=== PATIENT | male | born 1935 | race Caucasian/White ===

== ENCOUNTER → 2019-11-06 | Outpatient (CLI) | payer MEDICARE | END | disposition home or self-care (01) | LOC: RAH 11:00 | PROVIDERS: ATTEND Family Medicine | DX: C49.9 Malignant neoplasm of connective and soft tissue, unspecified (principal); Z96.641 Presence of right artificial hip joint; Z96.698 Presence of other orthopedic joint implants; Z89.611 Acquired absence of right leg above knee | CPT/HCPCS: 73718 ==

== ENCOUNTER → 2019-12-29 | Outpatient (CLI) | payer MEDICARE | END | disposition home or self-care (01) | LOC: RAH 10:42 | PROVIDERS: ATTEND Family Medicine | DX: S22.31XA Fracture of one rib, right side, initial encounter for closed fracture (principal); J90 Pleural effusion, not elsewhere classified; J18.1 Lobar pneumonia, unspecified organism; I70.0 Atherosclerosis of aorta; I25.10 Atherosclerotic heart disease of native coronary artery without angina pectoris; N26.1 Atrophy of kidney (terminal); M47.819 Spondylosis without myelopathy or radiculopathy, site unspecified; X58.XXXA Exposure to other specified factors, initial encounter; Y92.89 Other specified places as the place of occurrence of the external cause; Y93.89 Activity, other specified; Y99.8 Other external cause status | CPT/HCPCS: 71250 ==

== ENCOUNTER 2020-01-07 03:50 | Inpatient (IN) | payer MEDICARE ==
[~2020-01-07] VITALS: Ht 172.7 cm; Wt 69.3 kg
[2020-01-07 04:22] LABS: BASOPHILS % (AUTO) 0.3 % (0.0-5.0); EOSINOPHILS % (AUTO) 3.2 % (0.0-8.0); HEMATOCRIT 36.1 % (42-54); LYMPHOCYTES % (AUTO) 9.8 % (21.0-51.0); MEAN CORPUSCULAR HGB CONC 33.5 g/dL (32.0-36.0); MEAN CORPUSCULAR VOLUME 95.5 fL (79-99); MONOCYTES % (AUTO) 9.6 % (3.0-13.0); NEUTROPHILS % (AUTO) 76.8 % (40.0-77.0); PLATELET COUNT (AUTO) 193 K/uL (130-400); RED BLOOD CELL COUNT(AUTO) 3.78 MIL/uL (4.50-6.20); RED CELL DISTRIBUTION WIDTH 13.6 % (11.0-15.5); WHITE BLOOD COUNT (AUTO) 7.3 K/uL (4.8-10.8)
[2020-01-07 04:27] LABS: CREATININE 2.4 mg/dL (0.5-1.5); POTASSIUM 3.7 mmol/L (3.5-5.1)
[2020-01-07 04:33] LABS: ALBUMIN 3.1 g/dL (3.5-5.0); BILIRUBIN,TOTAL 0.3 mg/dL (0.2-1.0); TOTAL PROTEIN, SERUM 6.6 g/dL (6.0-8.3)
[2020-01-07 04:46] LABS: B-TYPE NATRIURETIC PEPTIDE 59 pg/mL (0-100)
[2020-01-07] MEDS ORDERED: METHYLPREDNISOLONE SOD SUCC 40MG/ML 1ML ONE (04:51)
[2020-01-07] MEDS ORDERED: FENTANYL CITRATE PF 50 MCG/1 ML 2ML VIAL ONE ×2 (04:52→05:56)
[2020-01-07] MEDS ORDERED: IPRATROPIUM/ALBUTEROL SULFATE 3 ML SOLUTION IH ONE ×2 (04:59→06:10)
[2020-01-07] MEDS ORDERED: LACTULOSE 20 GM/30 ML UDCUP PO PRN (06:30)
[2020-01-07] MEDS ORDERED: MORPHINE SULFATE 2 MG/ML 1ML SYG IV PRN (06:30)
[2020-01-07] MEDS ORDERED: ACETAMINOPHEN 325 MG TAB PO PRN ×2 (06:30)
[2020-01-07] MEDS ORDERED: ONDANSETRON HCL 4 MG/2 ML VIAL IV PRN (06:30)
[2020-01-07 07:00] LABS: INR 0.98 (0.85-1.15); PROTHROMBIN TIME 10.6 SEC (9.6-11.6)
[2020-01-07 08:00] VITALS: BP 118/76
--- NOTE | 2020-01-07 08:20 | NUR ---
ASSESSMENT / ARRIVAL TO FLOOR PT IS AAOX3 DENIES CP DENIES SOB DENIES NV NO COMPLAINTS AT THIS TIME. ARRIVED WITH ORDERS, CALL LIGHT WITHIN REACH/
[2020-01-07] MEDS ORDERED: MULT-1367 PO (08:30)
[2020-01-07] MEDS ORDERED: ASPI-1005 PO (08:30)
[2020-01-07] MEDS ORDERED: DOXA8TAB81 PO (08:30)
[2020-01-07] MEDS ORDERED: ACET-66 PO (08:30)
[2020-01-07] MEDS: LIDOCAINE 5% TOPICAL PATCH TP SCH (09:06)
[2020-01-07] MEDS: FAMOTIDINE 20MG TAB 20 MG TAB PO SCH ×2 (09:06→20:17)
--- NOTE | 2020-01-07 10:40 | NUR ---
DR MCNULTY ROUNDED SAW PATIENT ORDERS RECEIVED
[2020-01-07] MEDS: IPRATROPIUM/ALBUTEROL SULFATE 3 ML SOLUTION IH SCH ×3 (10:56→23:46)
[2020-01-07 12:00] VITALS: BP 125/76
--- NOTE | 2020-01-07 15:58 | NUR ---
[id number] Patient signed IM Letter, I faxed IM Letter to [phone] and placed in chart under consent tab.
[2020-01-07 16:00] VITALS: BP 110/63
[2020-01-07] MEDS ORDERED: HEPARIN 25000 UNITS/250 ML D5W 250 ML IV SCH (17:00)
--- NOTE | 2020-01-07 19:16 | NUR ---
INITIAL ASSESSMENT AND DISCHARGE PLAN CALL RECD FROM MAYLIN DAUGHTER- STATES PT AND SPOUSE LIVE HERE IN [facility] [employer] [place] EACH YEARS- RECENT NEW DX OF LUNG MASS ---HX OF SEVERAL OCCURRENCES OF CANCER IN THE PAST. DAUGHTER STATES PT IS INDP, HAS PROSTHESIS, FAMILY TO DRIVE TO [place]. PT GETTING READY FOR TRIP WHEN BECAME SUDDENLY SHORT OF BREATH AND ADMITTED TO HOSPITAL. DAUGHTER AND PATIENT WANT PATIENT TO BE MEDI-FLIGHTED BACK TO [place]. HAS INSURANCE FOR SAME AND WANT TO EXPEDITE [employer] CALLED ON CONFERENCE WITH PATIENT AND DAUGHTER TO GET THIS BANKING TEACHER'S EMAIL TO RECEIVE THE 'FIT TO FLY' FORM FOR MD TO COMPLETE ALSO START TO FILL OUT A RELEASE OF INFORMATION /JERROD .. BUT DAUGHTER DID NOT HAVE ALL THE INFO. WHAT MD CONTACT INFO THAT WAS AVAILABLE WAS SETN TO CM PHONE, CAN BE RETRIEIVED WHEN NEEDED THIS CM ADVISED DAUGHTER LATER IN THE DAY THAT NO EMAIL HAD BEEN RECEIVED FROM [employer]. ADVISED DAUGHTER THAT CM IN AM CAN FOLLOW UP.... BUT.... PATIENT IS *NOT* READY AT THIS TIME FIT TO TRAVEL BY AIR, .. PROBABLY NO ARRANGMENT SHOULD BE MADE RIGHT NOW CM IN AM TO FOLLOW UP Addendum: 01/07/20 at 1926 by SHIMA DIAZ RN CM Amended: Links added.
[2020-01-07 20:00] VITALS: BP 104/69
[2020-01-07] MEDS ORDERED: TEMAZEPAM 7.5 MG CAPSULE PO ONE (20:00)
[2020-01-08] VITALS (7 sets, daily range): BP systolic 103–137; BP diastolic 57–90
[2020-01-08 01:04] LABS: INR 0.99 (0.85-1.15); PROTHROMBIN TIME 10.7 SEC (9.6-11.6)
[2020-01-08 05:37] LABS: EOSINOPHILS % (AUTO) 1.9 % (0.0-8.0); HEMATOCRIT 34.1 % (42-54); LYMPHOCYTES % (AUTO) 3.6 % (21.0-51.0); MEAN CORPUSCULAR HEMOGLOBIN 31.4 pg (27.0-33.0); MEAN CORPUSCULAR HGB CONC 32.6 g/dL (32.0-36.0); MEAN CORPUSCULAR VOLUME 96.6 fL (79-99); MONOCYTES % (AUTO) 7.9 % (3.0-13.0); NEUTROPHILS % (AUTO) 86.2 % (40.0-77.0); PLATELET COUNT (AUTO) 179 K/uL (130-400); RED BLOOD CELL COUNT(AUTO) 3.53 MIL/uL (4.50-6.20); WHITE BLOOD COUNT (AUTO) 11.3 K/uL (4.8-10.8)
[2020-01-08 05:54] LABS: PROTHROMBIN TIME 10.8 SEC (9.6-11.6)
[2020-01-08 06:00] LABS: PARTIAL THROMBOPLASTIN TIME 90.5 SEC (26.3-35.5)
[2020-01-08 06:17] LABS: CREATININE 2.3 mg/dL (0.5-1.5); POTASSIUM 4.2 mmol/L (3.5-5.1)
[2020-01-08] MEDS: IPRATROPIUM/ALBUTEROL SULFATE 3 ML SOLUTION IH SCH ×4 (06:40→23:53)
--- NOTE | 2020-01-08 07:45 | NUR ---
ASSESSMENT ENCOUNTERED PT A&OX3 CALM COOPERATIVE AND DOES NOT APPEAR TO BE IN ANY DISTRESS NOR ANY NEURO DEFICITS PRESENT. PT DENIES PAIN, DIZZINESS BUT DOES C/O WHEEZING, COUGH, DYSPNEA ON EXERTION. 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 PT IS ABLE TO TOLERATE FOODS, FLUIDS AND MEDICATION WITH NO THROAT CLEARING OR COUGH. CALL LIGHT WITHIN REACH.
[2020-01-08] MEDS: LIDOCAINE 5% TOPICAL PATCH TP SCH (10:37)
[2020-01-08] MEDS: FAMOTIDINE 20MG TAB 20 MG TAB PO SCH ×2 (10:37→21:03)
--- NOTE | 2020-01-08 11:15 | NUR ---
cm note received call from kole spouse, and states that she is making arrangements for flight transportation for pt go back to [facility]. [facility] has sent information. reviewed and printed form for md, and will need to fill out forms.spoke to miranda [facility] nurse for md to sign and fill forms, and forms flagged for MD. when medically stable.
--- NOTE | 2020-01-08 20:10 | NUR ---
PM Assessment Received pt awake on Heparin drip at 12.98 units/kg/hr infusing well. Routine assessment done, plan of care discuss, pt verbalizes wish to be able to go back to [place] stating he will need something LINDSEY from his attending MD possibly surgical intervention, stated he was inform can't leave until PTT will be therapeutic. Pt made aware next PTT will be at 0000. Pt also verbalizes has been requesting for a cough medication & a sleeping pill again tonight as he was able to slept well the other night when given Restoril. Pt made aware Dr. Grant has not call back per Markus POWELL. I will obtain order for cough (non productive) & sleeping medication from the hospitalist group.
[2020-01-08] MEDS ORDERED: GUAIFENESIN-DM 200/20 MG 10 ML ONE (20:55)
[2020-01-08] MEDS ORDERED: TEMAZEPAM 7.5 MG CAPSULE PO ONE (20:56)
[2020-01-08] MEDS ORDERED: TEMAZEPAM 7.5 MG CAPSULE PO PRN (21:00)
--- NOTE | 2020-01-09 00:20 | NUR ---
Re: PTT >120 Per Heparin protocol drip held at this time for 1 hours then decrease by 2 units/kg/hr, drip will be re-started by 0120 at 12.98 units/kg/hr. Next PTT ordered for 0600.
--- NOTE | 2020-01-09 00:20 | NUR ---
Correction to the adjusted rate 11.98 units/kg/hr.
[2020-01-09] MEDS: GUAIFENESIN-DM 200/20 MG 10 ML PO PRN ×3 (01:38→21:36)
[2020-01-09 03:50] VITALS: BP 139/98
[2020-01-09] MEDS: IPRATROPIUM/ALBUTEROL SULFATE 3 ML SOLUTION IH SCH ×4 (05:35→23:11)
--- NOTE | 2020-01-09 06:20 | NUR ---
Re: PTT 56.0 no change on Heparin drip, 11.98units/kg/hr
--- NOTE | 2020-01-09 07:35 | NUR ---
ASSESSMENT ENCOUNTERED PT A&OX3, CALM COOPERATIVE AND DOES NOT APPEAR TO BE IN ANY DISTRESS NOR ANY NEURO DEFICITS PRESENT. PT ON HEPARIN IV DRIP PER PROTOCOL, CALL LIGHT WITHIN REACH.
[2020-01-09 08:00] VITALS: BP 130/77
[2020-01-09] MEDS: LIDOCAINE 5% TOPICAL PATCH TP SCH (10:18)
[2020-01-09] MEDS: FAMOTIDINE 20MG TAB 20 MG TAB PO SCH ×2 (10:18→21:36)
[2020-01-09 11:12] VITALS: BP 124/68
[2020-01-09 16:00] VITALS: BP 99/64
--- NOTE | 2020-01-09 16:30 | NUR ---
cm note spoke to miranda primary nurse, states that plan per MD is to discharge pt when ready. possibly tomorrow, and pt's is currently making arrangements for transport back to [place] after dc. spoke to powerhouse operator, and states pt does not require hospital to hospital transfer, due to MD plans to discharge pt when ready for dc. updated Sunny Mckeon CM dir. on above.
[2020-01-09] MEDS ORDERED: DEXAMETHASONE SOD PHOSPHATE 4 MG/ML 1ML VIAL IVP SCH (17:00)
--- NOTE | 2020-01-09 20:00 | NUR ---
PM Assessment Received pt awake watching TV with Heparin drip at 10.98 unit/kg/hr infusing well. Routine assessment done, plan of care discuss made aware that we received a call from her daughter stating that the plan trip for tomorrow going back to [place] will be around [phone]. Pt made aware that current Heparin drip will be turn off by around 2100 once I will start him on Eliquis. Pt at this time requesting something to help him have a BM as it has been 3 days today as claimed had not gone to the bathroom. Pt also requested to have his sleeping pill tonight. Pt currently denies discomfort feeling good knowing that he will be leaving for [place] tomorrow to continue his treatment with his own physicians.
[2020-01-09 20:02] VITALS: BP 137/87
[2020-01-09] MEDS ORDERED: DEXAMETHASONE SOD PHOSPHATE 4 MG/ML 1ML VIAL ONE (21:27)
[2020-01-09] MEDS: APIXABAN 5 MG TABLET PO SCH (21:37)
[2020-01-09 23:55] VITALS: BP 117/84
[2020-01-10 04:20] VITALS: BP 143/81
[2020-01-10] MEDS: GUAIFENESIN-DM 200/20 MG 10 ML PO PRN (05:56)
[2020-01-10] MEDS: IPRATROPIUM/ALBUTEROL SULFATE 3 ML SOLUTION IH SCH ×2 (06:09→11:50)
--- NOTE | 2020-01-10 07:30 | NUR ---
ASSESSMENT ENCOUNTERED PT A&OX3, CALM COOPERATIVE AND DOES NOT APPEAR TO BE IN ANY DISTRESS NOR ANY NEURO DEFICITS PRESENT. PT DOES HAVE RT AKA WITH PROSTHETIC LEG IN CLOSET, PT DOES C/O DYSPNEA ON EXERTION, PT IS PENDING DISCHARGE TO [place] VIA AIR AMBULANCE, CALL LIGHT WITHIN REACH.
[2020-01-10] MEDS: APIXABAN 5 MG TABLET PO SCH (07:31)
[2020-01-10] MEDS: FAMOTIDINE 20MG TAB 20 MG TAB PO SCH (07:31)
[2020-01-10] MEDS: LIDOCAINE 5% TOPICAL PATCH TP SCH (07:31)
[2020-01-10 08:00] VITALS: BP 141/87
[2020-01-10] MEDS ORDERED: APIX5TAB PO (08:37)
[2020-01-10] MEDS ORDERED: ALBU8.5H8 IH (08:39)
[2020-01-10] MEDS ORDERED: PRED20TA3 PO (08:39)
[2020-01-10] MEDS ORDERED: PREDNISONE 20 MG TABLET PO SCH (09:00)
--- NOTE | 2020-01-10 12:15 | NUR ---
DISCHARGE INSTRUCTIONS GIVEN, DISCHARGED VIA AIR AMBULANCE.
== END 2020-01-10 12:18 | disposition home or self-care (01) | DRG 175 ==
LOC: EDH 03:50 → OBSVTOIN 06:18 → EDHIP 06:18 → 4DH 08:17
PROVIDERS: ADMIT Internal Medicine; ATTEND Internal Medicine
DX: I26.09 Other pulmonary embolism with acute cor pulmonale (principal); J96.01 Acute respiratory failure with hypoxia; N17.9 Acute kidney failure, unspecified; I50.32 Chronic diastolic (congestive) heart failure; C34.91 Malignant neoplasm of unspecified part of right bronchus or lung; J44.1 Chronic obstructive pulmonary disease with (acute) exacerbation; D72.829 Elevated white blood cell count, unspecified; I08.1 Rheumatic disorders of both mitral and tricuspid valves; I27.20 Pulmonary hypertension, unspecified; I70.0 Atherosclerosis of aorta; N18.9 Chronic kidney disease, unspecified; N26.1 Atrophy of kidney (terminal); N40.0 Benign prostatic hyperplasia without lower urinary tract symptoms; Z87.891 Personal history of nicotine dependence; Z97.13 Presence of artificial right leg (complete) (partial); Z85.118 Personal history of other malignant neoplasm of bronchus and lung; Z92.3 Personal history of irradiation; Z89.611 Acquired absence of right leg above knee; Z90.2 Acquired absence of lung [part of]; Z03.818 Encounter for observation for suspected exposure to other biological agents ruled out
CPT/HCPCS: 36415; 71045; 78582; 80048; 80053; 82550; 83880; 84145; 84484; 85025; 85378; 85610; 85730; 86140; 93005; 93306; 93356; 93970; 93971; 94640; 94664; A9540; A9558; G0378; J1100; J1644; J2920; J3010